=== PATIENT | male | born 1985 | race Caucasian/White ===

== ENCOUNTER 2020-12-16 20:35 | Emergency (ER) | payer OTHER ==
[2020-12-16] MEDS ORDERED: Bacitracin 1 PK ONE (21:33)
[2020-12-16] MEDS ORDERED: Lidocaine 2% 20 ml MDV ONE (21:33)
== END 2020-12-16 22:34 | disposition home or self-care (01) ==
LOC: MADERS 20:35
DX: S01.81XA Laceration without foreign body of other part of head, initial encounter (principal); S61.210A Laceration without foreign body of right index finger without damage to nail, initial encounter; F17.290 Nicotine dependence, other tobacco product, uncomplicated; W22.8XXA Striking against or struck by other objects, initial encounter
CPT/HCPCS: 12002; 12013

== ENCOUNTER 2021-01-31 11:19 | Emergency (ER) | payer OTHER ==
[2021-01-31] MEDS ORDERED: HYDROcodone/Acetaminophen 5/325 mg Tablet ONE (12:01)
== END 2021-01-31 13:40 | disposition home or self-care (01) ==
LOC: MADERS 11:19
DX: S43.102A Unspecified dislocation of left acromioclavicular joint, initial encounter (principal); F17.200 Nicotine dependence, unspecified, uncomplicated; W01.0XXA Fall on same level from slipping, tripping and stumbling without subsequent striking against object, initial encounter